=== PATIENT | male | born 1940 | race Caucasian/White ===

== ENCOUNTER 2018-04-18 20:39 | Inpatient (IN) | payer MEDICARE ==
--- NOTE | 2018-04-18 21:00 | NUR ---
Admit note: Pt arrived on [facility] via EMS. Pt was calm, but when I explained to him that he was sent here for psychiatric evaluation and treatment he became upset and anxious. Pt states he was not told he was being sent to a psychiatric unit. He was aware that this was [facility] in [place]. He stated he was here to "have the chip removed from his chest". I explained that he does not have a chip implanted in his chest. Pt denies. He says he believes [facility] "tricked him into signing the papers for admission, but also admitted he had not read them as he doesn't read very well. He stated he is not willing to stay here. He spoke with both of his sons and expressed to them that he wanted them to come and pick him up tonight. I spoke with the son, Kole and gave him directions to the hospital and instructions on how to get to the main hospital. This patient in having delusions about being monitored by a chip implanted in his chest, but he is not a danger to himself or to others. He is alert to time, situation, place, , year, etc. Will update as necessary.
[2018-04-18] MEDS ORDERED: MAG HYDROX/AL HYDROX/SIMETH 30 ML ORAL.SUSP PO PRN (22:15)
[2018-04-18] MEDS ORDERED: MAGNESIUM HYDROXIDE 2,400 MG/30 ML ORAL.SUSP. PO PRN (22:15)
[2018-04-18] MEDS ORDERED: ACETAMINOPHEN 325 MG TABLET PO PRN (22:15)
[2018-04-18] MEDS ORDERED: METHYL SALICYLATE/MENTHOL TOPICAL OINTMENT 29GM TUBE. TP PRN (22:15)
--- NOTE | 2018-04-18 22:55 | NUR ---
Nursing note: Patients son arrived to take him home. Spoke with son and we both explained to patient that he is having his delusions and advised he needs to be treated in a psychiatric unit. Made son aware that they need to speak with patient about the need for a DPOA. Son said he is aware that they need to do this but they are not willing to take responsibility away from the patient at this time for fear that the patient will become angry with him. I explained there may come a time when it will be necessary. Son acknowledged my concerns. Patient left AMA with son. Both patient and son signed the AMA paperwork.
== END 2018-04-18 22:55 | disposition left against medical advice (07) | DRG 885 ==
LOC: GEROPSY 21:00
PROVIDERS: ADMIT Psychiatry & Neurology Psychiatry; ATTEND Psychiatry & Neurology Psychiatry
DX: F22 Delusional disorders (principal); R44.3 Hallucinations, unspecified; F29 Unspecified psychosis not due to a substance or known physiological condition; Z53.21 Procedure and treatment not carried out due to patient leaving prior to being seen by health care provider; N20.0 Calculus of kidney; I10 Essential (primary) hypertension; Z95.5 Presence of coronary angioplasty implant and graft